=== PATIENT | female | born 1985 | race American Indian/Alaskan Native ===

== ENCOUNTER 2016-03-30 13:16 | Emergency (ER) | payer SELFPAY ==
[2016-03-30 13:27] VITALS: BP 152/97
== END 2016-03-30 16:30 | disposition left against medical advice (07) ==
LOC: ED 13:16
DX: M79.646 Pain in unspecified finger(s) (principal); Z53.21 Procedure and treatment not carried out due to patient leaving prior to being seen by health care provider

== ENCOUNTER 2016-06-07 09:02 | Emergency (ER) | payer SELFPAY ==
[2016-06-07 09:52] LABS: Eosinophils % (Auto) 1.6 % (0.0-4.3); Hematocrit 37.2 % (30.3-42.9); Hemoglobin 11.8 gm/dl (10.1-14.3); Mean Corpuscular HGB Conc 32 % (30-34); Mean Corpuscular Volume 76 fl (79-97); Platelet Count 272 K/mm3 (140-440); Red Cell Distribution Width 16.6 % (13.2-15.2); White Blood Count 4.5 K/mm3 (4.5-11.0)
[2016-06-07 09:54] LABS: Mean Corpuscular Hemoglobin 24 pg (28-32)
[2016-06-07 09:56] LABS: Alanine Aminotransferase 23 units/L (7-56); Albumin 3.7 g/dL (3.9-5); Albumin/Globulin Ratio 1.1 %; Alkaline Phosphatase 50 units/L (35-129); Anion Gap 14 mmol/L; BUN/Creatinine Ratio 15.71; Bilirubin,Total 0.2 mg/dL (0.1-1.2); Blood Urea Nitrogen 11 mg/dL (7-17); Calcium 8.7 mg/dL (8.4-10.2); Carbon Dioxide 24 mmol/L (22-30); Glucose 101 mg/dL (65-100); Lipase 28 units/L (13-60); Potassium 4.1 mmol/L (3.6-5.0); Sodium 138 mmol/L (137-145); Total Protein 7.1 g/dL (6.3-8.2)
[2016-06-07] MEDS ORDERED: ZOFRAN IV ONE (17:00)
[2016-06-07] MEDS ORDERED: MORPHINE IV ONE (17:00)
--- NOTE | 2016-06-07 17:07 | Emergency Department Report ---
HPI - General Chief Complaint: Abdominal Pain Time Seen by Provider: 06/07/16 16:53 - HPI HPI: Room 9 The patient is a 30-year-old female presenting with a chief complaint of abdominal pain. Patient states for the past 2 weeks his had intermittent pain in the suprapubic and midepigastric region. Patient describes the pain as sharp and cramping in nature. The patient states she took 3 tests at home and they were all negative. Patient denies vaginal bleeding. Patient states she has not had a normal cycle in 2 months. Patient denies dysuria, nausea or vomiting. Patient denies hematuria. Patient denies recent antibiotic use or fever. Patient states for 1 week she has had diarrhea. Patient states she is having 2 loose stools daily. The patient currently gives her pain a score of 10/10. Location: [see above] Duration: Intermittent 2 weeks Quality: Sharp, cramping Severity: 10/10 Modifying factors: [see above] Context: [see above] Mode of transportation: [not driving] ED Past Medical Hx - Past Medical History Previous Medical History?: Yes Hx Seizures: Yes Hx Asthma: Yes Additional medical history: seizure - Surgical History Past Surgical History?: No - Family History Family history: no significant - Social History Smoking Status: Never Smoker Substance Use Type: None (denies illicit drug use) - Medications Home Medications: Home Medications Medication Instructions Recorded Confirmed Last Taken Type Diphenoxylate/Atropine [Lomotil] 2 tab PO QID PRN #20 tablet 06/07/16 Unknown Rx HYDROcodone/APAP 5-325 [[place] 1 - 2 each PO Q6HR PRN #14 tablet 06/07/16 Unknown Rx 5/325] metroNIDAZOLE [Flagyl] 500 mg PO Q8HR #21 tablet 06/07/16 Unknown Rx ED Review of Systems ROS: Stated complaint: ABD PAIN Other details as noted in HPI Comment: All other systems reviewed and negative Constitutional: denies: chills, fever Eyes: denies: eye pain, eye discharge, vision change ENT: denies: ear pain, throat pain Respiratory: denies: cough, shortness of breath, wheezing Cardiovascular: denies: chest pain, palpitations Endocrine: no symptoms reported Gastrointestinal: abdominal pain, diarrhea. denies: nausea, vomiting Genitourinary: abnormal menses. denies: urgency, dysuria, hematuria, discharge Musculoskeletal: denies: back pain, joint swelling, arthralgia Skin: denies: rash, lesions Neurological: denies: headache, weakness, paresthesias Psychiatric: denies: anxiety, depression Hematological/Lymphatic: denies: easy bleeding, easy bruising Physical Exam - Physical Exam Vital Signs: Vital Signs 06/07/16 09:08 Temperature 98 F Pulse Rate 85 Respiratory 18 Rate Blood Pressure 116/73 Physical Exam: GENERAL: The patient is well-developed well-nourished female lying on stretcher not appearing to be in acute distress. [] HEENT: Normocephalic. Atraumatic. Extraocular motions are intact. Patient has moist mucous membranes. NECK: Supple. Midline CHEST/LUNGS: Clear to auscultation. There is no respiratory distress noted. HEART/CARDIOVASCULAR: Regular. There is no tachycardia. There is no gallop rub or murmur. ABDOMEN: Abdomen is soft, with tenderness to palpation in the left upper, left lower and right lower quadrants. There is no tenderness to palpation in the right upper quadrant. Patient has normal bowel sounds. There is no abdominal distention. SKIN: There is no rash. There is no edema. There is no diaphoresis. NEURO: The patient is awake, alert, and oriented. The patient is cooperative. The patient has normal speech MUSCULOSKELETAL: There is no evidence of acute injury. ED Course Vital Signs 06/07/16 09:08 Temperature 98 F Pulse Rate 85 Respiratory 18 Rate Blood Pressure 116/73 ED Medical Decision Making - Lab Data Result diagrams: 06/07/16 09:25 06/07/16 09:25 Laboratory Tests 06/07/16 06/07/16 06/07/16 09:25 09:25 17:03 WBC 4.5 RBC 4.90 Hgb 11.8 Hct 37.2 MCV 76 L MCH 24 L MCHC 32 RDW 16.6 H Plt Count 272 Lymph % (Auto) 34.6 [place] % (Auto) 12.1 H Eos % (Auto) 1.6 Baso % (Auto) 1.0 Lymph # 1.6 [place] # 0.5 Eos # 0.1 Baso # 0.0 Seg Neutrophils % 50.7 Seg Neutrophils # 2.3 Sodium 138 Potassium 4.1 Chloride 104.0 Carbon Dioxide 24 Anion Gap 14 BUN 11 Creatinine 0.7 Estimated GFR > 60 BUN/Creatinine Ratio 15.71 Glucose 101 H Calcium 8.7 Total Bilirubin 0.2 AST 23 ALT 23 Alkaline Phosphatase 50 Total Protein 7.1 Albumin 3.7 L Albumin/Globulin Ratio 1.1 Lipase 28 Urine Color Yellow Urine Turbidity Clear Urine pH 6.0 Ur Specific [place] 1.027 Urine Protein <15 mg/dl Urine Glucose (UA) Neg Urine Ketones Neg Urine Blood Neg Urine Nitrite Neg Urine Bilirubin Neg Urine Urobilinogen < 2.0 Ur Leukocyte Esterase Neg Urine WBC (Auto) 1.0 Urine RBC (Auto) 4.0 U Epithel Cells (Auto) 7.0 Urine Mucus 1+ Urine HCG, Qual 06/07/16 17:03 WBC RBC Hgb Hct MCV MCH MCHC RDW Plt Count Lymph % (Auto) [place] % (Auto) Eos % (Auto) Baso % (Auto) Lymph # [place] # Eos # Baso # Seg Neutrophils % Seg Neutrophils # Sodium Potassium Chloride Carbon Dioxide Anion Gap BUN Creatinine Estimated GFR BUN/Creatinine Ratio Glucose Calcium Total Bilirubin AST ALT Alkaline Phosphatase Total Protein Albumin Albumin/Globulin Ratio Lipase Urine Color Urine Turbidity Urine pH Ur Specific [place] Urine Protein Urine Glucose (UA) Urine Ketones Urine Blood Urine Nitrite Urine Bilirubin Urine Urobilinogen Ur Leukocyte Esterase Urine WBC (Auto) Urine RBC (Auto) U Epithel Cells (Auto) Urine Mucus Urine HCG, Qual Negative - Radiology Data Radiology results: report reviewed (CT abdomen and pelvis), image reviewed (CT abdomen and pelvis) CT abdomen and pelvis (read by radiologist)-fluid throughout the length of the colon most suggestive of infectious diarrheal disease. No findings of doroteo colitis - Differential Diagnosis , ectopic , enteritis, appendicitis Critical care attestation.: If time is entered above; I have spent that time in minutes in the direct care of this critically ill patient, excluding procedure time. ED Disposition Clinical Impression: Diarrhea Disposition: DISCHARGED TO HOME OR SELFCARE Is pt being admited?: No Does the pt Need Aspirin: No Condition: Stable Instructions: Abdominal Pain (ED), Acute Diarrhea (ED) Additional Instructions: Return to the emergency department immediately should you develop worsening symptoms, fever, inability to tolerate food or liquid or any other concerns. Prescriptions: Diphenoxylate/Atropine [Lomotil] 2 tab PO QID PRN #20 tablet PRN Reason: Diarrhea HYDROcodone/APAP 5-325 [[place] 5/325] 1 - 2 each PO Q6HR PRN #14 tablet PRN Reason: Pain metroNIDAZOLE [Flagyl] 500 mg PO Q8HR #21 tablet Referrals: PRIMARY CARE, [Primary Care Provider] - 3-5 Days BIJU SERRANO MD [Staff Physician] - 3-5 Days (Dr. Serrano is a welt wheeler. Please follow up with him for further evaluation) Time of Disposition: 18:30
[2016-06-07] MEDS ORDERED: NORCO 5/325 PO ONE (17:26)
[2016-06-07 17:44] LABS: Bilirubin,Urine NEG (Negative); Blood,Urine NEG (Negative); Ketones,Urine NEG (Negative); Leukocyte Esterase,Urine NEG (Negative); Mucus,Urine 1+ /HPF; Nitrite,Urine NEG (Negative); Protein,Urine <15 mg/dL mg/dL (Negative); Urobilinogen,Urine < 2.0 mg/dL (<2.0)
[2016-06-07 17:45] VITALS: BP 123/79
--- NOTE | 2016-06-07 18:24 | Cat Scan Report ---
FINAL REPORT EXAM: CT ABDOMEN PELVIS WO CON HISTORY: epigastric, suprapubic abdominal pain with diarrhe TECHNIQUE: CT images obtained through the Abdomen and Pelvis without contrast. Transaxial,coronal and sagittal reformats are provided. PRIORS: None. FINDINGS: Imaged intrathoracic contents are unremarkable. A 2 millimeter nodule in the right middle lobe on axial series 3, image 11 is of unlikely clinical significance. Kidneys are normal in size, axis and position. No hydronephrosis or nephrolithiasis. The ureters are normal in course and caliber. No stones are seen within the urinary bladder. The liver, gallbladder, pancreas, spleen, and adrenal glands demonstrate a normal noncontrast appearance. Hollow enteric organs are normal in course and caliber. Fluid throughout the length of the colon without pericolonic stranding or edema. No focal fluid collection to suggest abscess formation appendix is normal. No intra-abdominal free air/fluid or lymphadenopathy. Aorta is normal in course and caliber. Anteverted uterus. Small volume of free fluid in the pelvis. Superficial soft tissues are unremarkable. No acute or aggressive appearing skeletal findings. IMPRESSION: Fluid throughout the length of the colon most suggestive of infectious diarrheal disease. No findings of doroteo colitis.
== END 2016-06-07 18:42 | disposition home or self-care (01) ==
LOC: ED 09:02
DX: R19.7 Diarrhea, unspecified (principal); R56.9 Unspecified convulsions; J45.909 Unspecified asthma, uncomplicated
CPT/HCPCS: 36415; 74176; 80053; 81001; 81025; 83690; 85025; 99284; J2405; J2270

== ENCOUNTER 2018-07-19 14:25 | Emergency (ER) | payer OTHER ==
[2018-07-19 15:05] VITALS: BP 103/76
--- NOTE | 2018-07-19 15:05 | Emergency Department Report ---
Chief Complaint: Animal Bite Stated Complaint: (L) LEG SPIDER BITE/PAIN Time Seen by Provider: 07/19/18 15:02 - HPI History of Present Illness: This is a 33 y.o. F that presents with abscess to left aj from spider bite yesterday. PMH seizures Denies drainage. Reports itching and swelling. LMP 07/07/18 - Exam Vital Signs: Vital Signs 07/19/18 15:03 Temperature 98 F Pulse Rate 86 Respiratory 16 Rate Blood Pressure 103/76 [Right] O2 Sat by Pulse 99 Oximetry MSE screening note: Focused history and physical exam performed. Due to findings the following was ordered: ACC for further evaluation ED Disposition for MSE Condition: Stable
--- NOTE | 2018-07-19 17:19 | Emergency Department Report ---
ED Animal Bite HPI - General Chief Complaint: Animal Bite Stated Complaint: (L) LEG SPIDER BITE/PAIN Time Seen by Provider: 07/19/18 15:02 Source: patient Mode of arrival: Ambulatory Limitations: No Limitations - History of Present Illness Initial Comments: This is a 33-year-old female who presents to ED complaining of spider/insect bite to her left anterior leg. Persistent since yesterday she noticed swelling to the area. She denies fevers/chills/nausea vomiting or any other complaints Left: Leg Animal: other (insect, spider) Mechanism: bite Associated Symptoms: none - Related Data Patient Tetanus UTD: Yes Previous Rx's Medication Instructions Recorded Last Taken Type Diphenoxylate/Atropine [Lomotil] 2 tab PO QID PRN #20 tablet 06/07/16 Unknown Rx HYDROcodone/APAP 5-325 [[place] 1 - 2 each PO Q6HR PRN #14 tablet 06/07/16 Unknown Rx 5/325] metroNIDAZOLE [Flagyl] 500 mg PO Q8HR #21 tablet 06/07/16 Unknown Rx Clindamycin [Clindamycin CAP] 300 mg PO Q8H #21 cap 07/19/18 Unknown Rx Allergies Allergy/AdvReac Type Severity Reaction Status Date / Time No Known Allergies Allergy Verified 07/19/18 15:05 ED Review of Systems ROS: Stated complaint: (L) LEG SPIDER BITE/PAIN Other details as noted in HPI Comment: All other systems reviewed and negative ED Past Medical Hx - Past Medical History Previous Medical History?: Yes Hx Seizures: Yes Hx Asthma: Yes Additional medical history: seizure - Surgical History Past Surgical History?: No - Social History Smoking Status: Never Smoker Substance Use Type: None - Medications Home Medications: Home Medications Medication Instructions Recorded Confirmed Last Taken Type Diphenoxylate/Atropine [Lomotil] 2 tab PO QID PRN #20 tablet 06/07/16 Unknown Rx HYDROcodone/APAP 5-325 [[place] 1 - 2 each PO Q6HR PRN #14 tablet 06/07/16 Unknown Rx 5/325] metroNIDAZOLE [Flagyl] 500 mg PO Q8HR #21 tablet 06/07/16 Unknown Rx Clindamycin [Clindamycin CAP] 300 mg PO Q8H #21 cap 07/19/18 Unknown Rx ED Physical Exam - General Limitations: No Limitations General appearance: alert, in no apparent distress - Head Head exam: Present: atraumatic, normocephalic - Eye Eye exam: Present: normal appearance - ENT ENT exam: Present: mucous membranes moist - Neck Neck exam: Present: normal inspection - Respiratory Respiratory exam: Present: normal lung sounds bilaterally. Absent: respiratory distress - Cardiovascular Cardiovascular Exam: Present: regular rate, normal rhythm. Absent: systolic murmur, diastolic murmur, rubs, gallop - GI/Abdominal GI/Abdominal exam: Present: soft, normal bowel sounds - Extremities Exam Extremities exam: Present: normal inspection, full ROM, other (insect bite noted at the left anterior lower leg right below the knee. Some swelling noted no bleeding) - Back Exam Back exam: Present: normal inspection - Neurological Exam Neurological exam: Present: alert, oriented X3 - Psychiatric Psychiatric exam: Present: normal affect, normal mood - Skin Skin exam: Present: warm, dry, intact, normal color. Absent: rash ED Course Vital Signs 07/19/18 15:03 Temperature 98 F Pulse Rate 86 Respiratory 16 Rate Blood Pressure 103/76 [Right] O2 Sat by Pulse 99 Oximetry - Reevaluation(s) Reevaluation #1: 07/19/18 17:24 Insect bite to left lower leg. Discussed the patient to apply heat three Times a day Discussed with the patient to make sure she completes her antibiotic and discussed follow-up with primary care physician. She is in no acute distress. 07/19/18 17:24 Critical care attestation.: If time is entered above; I have spent that time in minutes in the direct care of this critically ill patient, excluding procedure time. ED Disposition Clinical Impression: Spider bite Disposition: DC-01 TO HOME OR SELFCARE Is pt being admited?: No Does the pt Need Aspirin: No Condition: Stable Instructions: Insect Bite or Sting (ED) Additional Instructions: Make sure to follow up with the primary care physician as discussed. Take all your medications as you've been prescribed. If you have any worsening symptoms or develop new symptoms please return to ED immediately. Prescriptions: Clindamycin [Clindamycin CAP] 300 mg PO Q8H #21 cap Referrals: JUANCARLOS CAPUTO MD [Referring] - 3-5 Days Forms: Work/School Release Form(ED) Time of Disposition: 17:23
== END 2018-07-19 17:45 | disposition home or self-care (01) ==
LOC: ED 14:25
DX: T63.301A Toxic effect of unspecified spider venom, accidental (unintentional), initial encounter (principal); J45.909 Unspecified asthma, uncomplicated; Z79.899 Other long term (current) drug therapy; Y92.9 Unspecified place or not applicable
CPT/HCPCS: 99282